=== PATIENT | female | born 1990 | race Hispanic/Latino ===

== ENCOUNTER 2019-04-26 12:11 | Emergency (ER) | payer SELFPAY ==
[2019-04-26] MEDS ORDERED: LEVALBUTEROL 1.25 MG/3 ML NEB ONE (13:05)
--- NOTE | 2019-04-26 13:46 | RAD REPORT ---
EXAM DESCRIPTION: Kristen Arenas (2 Views)04/26/2019 1:30 pm CLINICAL HISTORY: Cough COMPARISON: None FINDINGS: The lungs appear clear of acute infiltrate. The heart is normal size IMPRESSION: No acute abnormalities displayed
--- NOTE | 2019-04-26 13:51 | ER ---
Nurse's Notes [facility] Name: Valentina Estrada Age: 28 yrs Sex: Female : 1990 Arrival Date: 04/26/2019 Time: 12:15 Bed 26 Private MD: None, None Diagnosis: Acute bronchitis Presentation: 04/26 12:21 Presenting complaint: Sinus congestion, sore throat, headache, body aches, hb nonproductive cough, pain with cough, SOB, and chills x 2 days. Transition of care: patient was not received from another setting of care. Resp Distress? No respiratory distress is noted at this time. Onset of symptoms was April 25, 2019. Risk Assessment: Do you want to hurt yourself or someone else? Patient reports no desire to harm self or others. Initial Sepsis Screen: Does the patient meet any 2 criteria? No. Patient's initial sepsis screen is negative. Does the patient have a suspected source of infection? No. Patient's initial sepsis screen is negative. Care prior to arrival: None. 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 - Social history:: Smoking status: Patient/guardian denies using tobacco. - Ebola Screening: : No symptoms or risks identified at this time. Screenin:35 Abuse screen: Denies threats or abuse. Denies injuries from another. Nutritional mg2 screening: No deficits noted. Tuberculosis screening: No symptoms or risk factors identified. Fall Risk None identified. Assessment: 12:46 General: Appears in no apparent distress. comfortable, Behavior is calm, cooperative. mg2 Pain: Complains of pain in chest Pain does not radiate. Pain currently is 2 out of 10 on a pain scale. Quality of pain is described as aching, Pain began gradually, Is intermittent. Neuro: Level of Consciousness is awake, alert, obeys commands, Oriented to person, place, time, situation. Respiratory: Airway is patent Respiratory effort is even, unlabored, Respiratory pattern is regular, symmetrical, Breath sounds with wheezes. Respiratory: Reports cough that is. GI: No signs and/or symptoms were reported involving the gastrointestinal system. : No signs and/or symptoms were reported regarding the genitourinary system. EENT: Reports sore throat. Derm: Skin is intact, is healthy with good turgor, Skin is pink, warm \T\ dry. normal. Musculoskeletal: Circulation, motion, and sensation intact. Capillary refill < 3 seconds. Vital Signs: 12:22 BP 146 / 89; Pulse 81; Resp 20; Temp 98.; Pulse Ox 99% on R/A; Weight 97.98 kg; Height hb 5 ft. (152.40 cm); Pain 6/10; 13:18 BP 122 / 63; Pulse 82; Resp 18; Pulse Ox 100% on R/A; mg2 12:22 Body Mass Index 42.18 (97.98 kg, 152.40 cm) hb ED Course: 12:15 Patient arrived in ED. mr 12:16 None, None is Private Physician. mr 12:22 Triage completed. hb 12:22 Arm band placed on right wrist. hb 12:27 Tito Jasmine PA is PHCP. jmm 12:27 Yosef Whitt MD is Attending Physician. jmm 12:35 Chiki Nicole RN is Primary Nurse. mg2 12:35 Patient has correct armband on for positive identification. Pulse ox on. NIBP on. Door mg2 closed. 12:47 No provider procedures requiring assistance completed. Patient did not have IV access mg2 during this emergency room visit. 13:30 X-ray completed. Patient tolerated procedure well. Patient moved back from radiology. jb2 13:30 Chest Pa And Lat (2 Views) XRAY In Process Unspecified. EDMS Administered Medications: 12:54 Drug: Xopenex (3) 1.25 mg Route: Inhalation; mg2 13:56 Follow up: Response: No adverse reaction; Marked relief of symptoms rv Outcome: 13:50 Discharge ordered by . jmm 13:57 Discharged to home ambulatory. rv 13:57 Condition: good 13:57 Discharge instructions given to patient, Instructed on discharge instructions, follow up and referral plans. medication usage, Demonstrated understanding of instructions, follow-up care, medications, Prescriptions given X 2. 13:57 Patient left the ED. rv Signatures: Dispatcher [employer] EDMS Tito Jasmine PA PA jmm Dionicio, Celena mr Dar, Casey jb2 Monika Lau, RN RN Chiki Nicole, JACLYN RN mg2 Prateek Carrillo RN RN rv
--- NOTE | 2019-04-26 13:52 | EDPHYS ---
Physician Documentation [facility] Name: Valentina Estrada Age: 28 yrs Sex: Female : 1990 Arrival Date: 04/26/2019 Time: 12:15 Bed 26 Private MD: None, None ED Physician Yosef Whitt HPI: 04/26 12:49 This 28 yrs old Female presents to ER via Ambulatory with complaints of Cough, jmm Congestion, Chest Pain. 12:49 The patient or guardian reports cough, described as moderate. Onset: The jmm symptoms/episode began/occurred gradually, 1 day(s) ago. Modifying factors: The symptoms are alleviated by nothing, the symptoms are aggravated by nothing. The patient has not experienced similar symptoms in the past. Patient complains of cough, sore throat beginning yesterday. Patient denies previous symptoms in the past. Complains of subject chills. . 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 - Social history:: Smoking status: Patient/guardian denies using tobacco. - Ebola Screening: : No symptoms or risks identified at this time. ROS: 12:49 Cardiovascular: Negative for chest pain, palpitations, and edema, Respiratory: Negative jmm for shortness of breath, cough, wheezing, and pleuritic chest pain. 12:49 Constitutional: Positive for body aches, chills. 12:49 Respiratory: Positive for cough, wheezing. 12:49 All other systems are negative. Exam: 12:49 Constitutional: This is a well developed, well nourished patient who is awake, alert, jmm and in no acute distress. Head/Face: atraumatic. Eyes: EOMI, no conjunctival erythema appreciated ENT: Moist Mucus Membranes Neck: Trachea midline, Supple Chest/axilla: Normal chest wall appearance and motion. Cardiovascular: Regular rate and rhythm. No edema appreciated 12:49 Abdomen/GI: Non distended, soft Back: Normal ROM Skin: General appearance color normal MS/ Extremity: Moves all extremities, no obvious deformities appreciated, no edema noted to the lower extremities Neuro: Awake and alert, normal gait Psych: Behavior is normal, Mood is normal, Patient is cooperative and pleasant 12:49 Respiratory: the patient does not display signs of respiratory distress, Respirations: normal, Breath sounds: wheezing: that is mild, is heard in the right posterior middle lobe. Vital Signs: 12:22 BP 146 / 89; Pulse 81; Resp 20; Temp 98.; Pulse Ox 99% on R/A; Weight 97.98 kg; Height hb 5 ft. (152.40 cm); Pain 6/10; 13:18 BP 122 / 63; Pulse 82; Resp 18; Pulse Ox 100% on R/A; mg2 12:22 Body Mass Index 42.18 (97.98 kg, 152.40 cm) hb MDM: 12:42 Patient medically screened. [facility] 13:49 Data reviewed: vital signs, nurses notes. Counseling: I had a detailed discussion with [facility] the patient and/or guardian regarding: the historical points, exam findings, and any diagnostic results supporting the discharge/admit diagnosis, lab results, radiology results, the need for outpatient follow up, to return to the emergency department if symptoms worsen or persist or if there are any questions or concerns that arise at home. ED course: Patient is alert and non toxic in appearance in the ED. No signs of resp distress appreciated. Negative. studies. patient advised to follow up with pcp and otherwise given strict return precautions. patient understood and agrees with the plan of care. . 04/26 12:48 Order name: Strep; Complete Time: 13:49 [facility] 04/26 13:13 Order name: Throat Culture [facility] 04/26 12:48 Order name: Chest Pa And Lat (2 Views) XRAY; Complete Time: 13:49 [facility] Administered Medications: 12:54 Drug: Xopenex (3) 1.25 mg Route: Inhalation; mg2 13:56 Follow up: Response: No adverse reaction; Marked relief of symptoms rv Disposition: 16:03 Co-signature as Attending Physician, Yosef Whitt MD. rn Disposition: 04/26/19 13:50 Discharged to Home. Impression: Acute bronchitis. - Condition is Stable. - Discharge Instructions: Acute Bronchitis, Adult. - Prescriptions for Prednisone 20 mg Oral Tablet - take 3 tablet by ORAL route once daily for 5 days; 15 tablet. Albuterol Sulfate 90 mcg/actuation - inhale 1-2 puff by INHALATION route every 4-6 hours; 1 Inhaler. - Medication Reconciliation Form, Thank You Letter, Antibiotic Education, Prescription Opioid Use form. - Follow up: Private Physician; When: 2 - 3 days; Reason: Recheck today's complaints, Continuance of care, Re-evaluation by your physician. Signatures: Dispatcher [employer] EDMS Tito Jasmine PA PA jmm Nieto, Roman, MD MD rn Baxter, Heather, RN RN Chiki Nicole RN RN [facility] Prateek Carrillo RN RN rv Corrections: (The following items were deleted from the chart) 13:57 13:50 04/26/2019 13:50 Discharged to Home. Impression: Acute bronchitis. Condition is rv Stable. Forms are Medication Reconciliation Form, Thank You Letter, Antibiotic Education, Prescription Opioid Use. Follow up: Private Physician; When: 2 - 3 days; Reason: Recheck today's complaints, Continuance of care, Re-evaluation by your physician. billie
== END 2019-04-26 13:57 | disposition home or self-care (01) ==
LOC: ER 12:11
DX: J20.9 Acute bronchitis, unspecified (principal)
CPT/HCPCS: 71046; 87070; 87081